=== PATIENT | male | born 1960 | race Caucasian/White ===

== ENCOUNTER → 2024-11-16 | Outpatient (CLI) | payer MEDICARE, SELFPAY ==
[2024-11-16 08:34] LABS: Basophils % (Auto) 0 % (0-2.5); Eosinophils # (Auto) 0.1 Thou/mm3 (0.0-0.5); Eosinophils % (Auto) 1 % (0-10); Hematocrit 44.7 % (41.0-53.0); Hemoglobin 15.5 g/dL (13.5-16.0); Immature Granulocytes % (Auto) 1 % (0-0); Immature Granulocytes Auto 0.03 Thou/mm3 (0.00-0.00); Lymphocytes # (Auto) 1.6 Thou/mm3 (1.0-4.8); Lymphocytes % (Auto) 27 % (10-50); Mean Corpuscular HGB Conc 34.7 g/dl (31.0-37.0); Mean Corpuscular Hemoglobin 31.2 pg (25.0-35.0); Mean Corpuscular Volume 90 fL (80-100); Monocytes # (Auto) 0.6 Thou/mm3 (0.0-0.8); Monocytes % (Auto) 10 % (0-12); Neutrophils # (Auto) 3.4 Thou/mm3 (1.8-7.7); Neutrophils % (Auto) 61 % (37-80); Nucleated Red Blood Cell % 0 /100 WBC (0); Platelet Count 261 Thou/mm3 (140-440); RDW Standard Deviation 39.2 fL (35.1-43.9); Red Blood Count 4.97 Miln/mm3 (4.50-5.90); White Blood Count 5.7 Thou/mm3 (3.8-10.6)
[2024-11-16 08:46] LABS: Glucose Estimated Average 100 mg/dL (80-131); Hemoglobin A1C 5.1 % Hgb (4.8-6.0)
[2024-11-16 09:09] LABS: Alanine Aminotransferase 23 U/L (10-49); Albumin, Serum 4.3 gm/dL (3.4-4.8); Albumin/Globulin Ratio 1.5 (1.2-2.2); Alkaline Phosphatase 74 U/L (46-116); Anion Gap 6 (7-16); Aspartate Amino Transferase 19 U/L (0-34); BUN/Creatinine Ratio 18 Ratio (12-20); Blood Urea Nitrogen 18 mg/dL (9-23); Calcium 9.3 mg/dL (8.3-10.6); Calcium (Corrected) 9.3 mg/dL (8.5-10.1); Carbon Dioxide 28.7 mMol/L (20.0-31.0); Chloride 108 mMol/L (98-107); Free T4 (Free Thyroxine) 0.99 ng/dL (0.89-1.76); Globulin 2.8 gm/dL (2.3-3.5); Glucose 105 mg/dL (74-106); Osmolality,Calculated 286 (275-295); Potassium 4.3 mMol/L (3.4-5.1); Sodium 143 mMol/L (136-145); Thyroid Stimulating Hormone 4.79 uIU/mL (0.55-4.78); Total Protein 7.1 gm/dL (5.7-8.2); eGFR > 60 See Note
[2024-11-16 09:26] LABS: Cardiac Risk Estimate 3.8 RATIO (4.0-6.7); Cholesterol 175 mg/dL (132-200); HDL Cholesterol 46 mg/dL (40-60); LDL Cholesterol,Calculated 102 mg/dL (0-130); Triglycerides 136 mg/dL (30-150)
[2024-11-16 14:56] LABS: Prostate Specific Antigen 2.02 ng/mL (0-4.00)
== END | disposition home or self-care (01) ==
LOC: SLAB 06:38 → COPL 06:44
PROVIDERS: PCP Internal Medicine; Referring Provider Internal Medicine; Visit Provider Internal Medicine
DX: Z00.00 Encounter for general adult medical examination without abnormal findings (principal); N40.1 Benign prostatic hyperplasia with lower urinary tract symptoms; E55.9 Vitamin D deficiency, unspecified; E03.9 Hypothyroidism, unspecified
CPT/HCPCS: 36415; 80053; 80061; 82306; 83036; 84153; 84439; 84443; 85025

== ENCOUNTER 2024-12-08 12:15 | Day surgery (SDC) | payer MEDICARE, SELFPAY ==
[2024-12-07 14:24] VITALS: BMI 28.1
[2024-12-08] VITALS (12 sets, daily range): BP systolic 117–161; BP diastolic 61–89; PULSE 49–65; RESP 12–18; TEMP 36.6; O2SAT 95–100; BMI 27.9
[2024-12-08] MEDS: SODIUM CHLORIDE 0.9% 500 ML 500 ML 20 ML IV (12:51)
[2024-12-08] MEDS: fentaNYL CIT INJ 50 mCg/ML AMP 2ML (ASD USE ONLY) IV (13:58)
[2024-12-08] MEDS: DiphenhydrAMINE INJ 50 MG/ML VIAL 25 MG IV (13:59)
[2024-12-08] MEDS: MIDAZOLAM INJ 1 MG/ML VIAL 2 ML (ASD USE ONLY) 2 MG IV (14:00)
--- NOTE | 2024-12-08 14:45 | SUR.PHASEII ---
PATIENT CONVERSING WITH STAFF AND DRINKING 7UP. PATIENT DENIES PAIN AND NAUSEA AT THIS TIME.
== END 2024-12-08 15:17 | disposition home or self-care (01) ==
PROVIDERS: PCP Internal Medicine; Referring Provider Specialist; Visit Provider Specialist
PROC: 0DBE8ZX Excision of Large Intestine, Via Natural or Artificial Opening Endoscopic, Diagnostic (ICD-10-PCS; CPT 45380; principal; 2024-12-08 12:00)
DX: K64.2 Third degree hemorrhoids (principal)
CPT/HCPCS: 46221; 45378; A4649; J1200; J2250; J3010; J7040

== ENCOUNTER 2025-06-14 17:37 | Emergency (ER) | payer MEDICARE, SELFPAY ==
[2025-06-14] VITALS (7 sets, daily range): BP systolic 146–191; BP diastolic 76–98; PULSE 62–74; RESP 17–19; TEMP 36.8–37.3; O2SAT 94–98; BMI 27.3
--- NOTE | 2025-06-14 18:21 | PD.EDHA ---
ED Headache RME/HPI General Chief Complaint: Headache Stated Complaint: HEADACHE WITH EYE PAIN, HTN, VOMITING TODAY Time Seen by Provider: 06/14/25 18:21 Arrival date/time: 06/14/25 17:37 RME / HPI RME / HPI Narrative: Dr. 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 Patient has had several bouts of vomiting. Reports baseline blurry vision since the surgery. No lateralizing motor or sensory deficits. No fever or chills. PMH includes HTN. PSH noncontributory. No alcohol or illicit drug abuse. Related Data Home Medications ?Medication ?Instructions ?Recorded ?Confirmed amlodipine 2.5 mg tablet 2.5 mg PO QDAY 12/07/24 12/07/24 valsartan 160 1 tab PO QDAY 12/07/24 12/07/24 mg-hydrochlorothiazide 12.5 mg tablet Previous Rx's ?Medication ?Instructions ?Recorded hydrocodone 10 mg-acetaminophen 1 tab PO BID PRN pain #12 tabs 06/14/25 325 mg tablet Allergies Allergy/AdvReac Type Severity Reaction Status Date / Time No Known Allergies Allergy Verified 06/14/25 17:40 Review of Systems Review of Systems Systems Reviewed: All systems reviewed, normal except as documented Past Medical History Past Medical History NEUROLOGIC: Negative Neurological Disorders or Seizures CARDIAC: Positive Cardiac Disorders and Hypertension; Negative Congestive Heart Failure RESPIRATORY: Negative Chronic Obstructive Pulmonary Disease (COPD) GASTROINTESTINAL: Negative Gastrointestinal Disorders GENITOURINARY: Negative Genitourinary Disorders or Renal Disease MUSCULOSKELETAL: Negative Musculoskeletal Disorders ENT: Positive Cataracts (BILATERAL) ENDOCRINE: Negative Endocrine Disorders, Diabetes Mellitus Type 1 or Diabetes Mellitus Type 2 HEMATOLOGIC: Negative Blood Disorders or Clotting Problems OTHER HISTORY: Negative Hospitalization, Autoimmune Disease, Falls, Blood Transfusions, Anesthesia Reactions or Cancer Surgical History SURGICAL: Positive Vasectomy Social History SMOKING STATUS: Never smoker ED Exam Narrative Physical exam: GENERAL APPEARANCE: alert and oriented x 4, well-developed, well-nourished, in moderate distress VITALS: All vitals were reviewed and the pulse ox is 97% on room air, which is normal according to my interpretation. Moderately hypertensive. HEENT: Normocephalic, atraumatic; no allodynia, intense ecchymosis ?lens displacement of the left eye, left pupil is fixed and dilated, right pupil is brisk and reactive; fundoscopic exam is not visualized; mucous membranes pink, moist; oropharynx clear NECK: Supple LUNGS: CTABL; no wheezes, no rales, no rhonchi HEART: Regular rate, regular rhythm; normal S1, S2; no murmurs ABDOMEN: non distended; soft, no tenderness EXTREMITIES: atraumatic; no edema NEUROLOGIC: awake; alert and oriented x4; cranial nerves II-XII grossly intact; no focal sensory or motor deficits PSYCHIATRIC: appropriate mood and affect SKIN: warm, dry, normal color; no rashes Course Quality Measures none Orders Category Date Time Status Insert IV NOW Care 06/14/25 18:[address] head/brain wo con Stat Exams 06/14/25 18:35 Completed CBC [CBC] Stat Lab 06/14/25 18:40 Completed CMP [Comprehensive Metabolic Panel] Stat Lab 06/14/25 18:40 Completed Fluorescein Sodium [Bio-Lisa] Med 06/14/25 18:54 Discontinued 1 mg LEFT EYE X1 ONE Midazolam Inj [Versed Inj] Med 06/14/25 22:43 Discontinued 2 mg IVP X1 ONE Morphine* Inj Med 06/14/25 18:34 Discontinued 4 mg IVP X1 ONE Morphine* Inj Med 06/14/25 21:01 Discontinued 4 mg IVP X1 ONE Ondansetron Inj [Zofran Inj] Med 06/14/25 21:24 Discontinued 4 mg IVP X1 ONE Prochlorperazine Inj [Compazine Inj] Med 06/14/25 18:33 Discontinued 5 mg IV X1 ONE Proparacaine Op Malena 0.5% [Alcaine Op Malena 0.5%] Med 06/14/25 18:35 Discontinued See Dose Instructions LEFT EYE X1 ONE Sodium Chloride 0.9% 1000 ml [Ns] 1,000 ml Med 06/14/25 19:46 Discontinued IV 100 mls/hr Sodium Chloride 0.9% [Ns] 100 ml Med 06/14/25 18:34 Discontinued IV X1 hydrALAZINE INJ [Apresoline Inj] Med 06/14/25 18:35 Discontinued 10 mg IVP X1 ONE hydrALAZINE INJ [Apresoline Inj] Med 06/14/25 20:58 Discontinued 5 mg IVP X1 ONE Vital Signs Vital signs: Vital Signs Temperature 98.2 F 06/14/25 17:53 Pulse Rate 62 06/14/25 17:53 Respiratory Rate 19 06/14/25 17:53 Blood Pressure 191/98 H 06/14/25 17:53 Pulse Oximetry (%) 97 06/14/25 17:53 Oxygen Delivery Method Room Air 06/14/25 17:53 PROCEDURES: Procedure Comment Tonometry exam performed after proparacaine drops were instilled to both conjunctival sacs. Pressures were obtained and were 1-2 bilaterally. Headache MDM Narrative MDM Narrative:: Scribe Attestation: 06/14/25 - Danae, Radha Mendoza am scribing for and in the presence of Dr. Holder. 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 Patient has had several bouts of vomiting. Please see PE findings. Lab markers demonstrated marginally elevated WBC count 10.9, stable Hgb 15.9, normal Plt, left shift without bandemia. Chemistries are unremarbable. CT scan demonstrates hyperdense left globe. Patient placed on monitor worker, IV established, and patient received incremental doses of narcotic analgesics/antihypertensives with gradual reduction of blood pressure and moderate controlled pain. Ocular pressures obtained and seem to be normal bilaterally. Bedside US demonstrates hyperdense posterior chamber, ?vitreous hemorrhage. Will attempt to contact supervisor agricultural education for close follow-up. Patient will be discharged to home with instructions to maintain head of bed elevation, cool comp, and will be given narcotic analgesics with anticipated close follow-up. Brake Engineer was contacted and can see the patient tomorrow morning at 8am in his office. Patient data External records reviewed:: [facility] previous records (Per chart review, patient has no previous ED visits or admissions to this facility.) Clinical information provided by:: patient Social determinants that could affect healthcare access:: none Patient has the following chronic illnesses:: HTN How is presenting disease/condition affected by chronic disease/condition?: uneffected by Evaluation data The following diagnostics were reviewed and interpreted by me:: lab results and radiology exam(s) Lab and/or radiology exams considered but not ordered:: none Interpretation Summary: [facility] Report Signed Patient: THERESE MEAD [facility]. Record#: [id number] Birthdate: 1960 Age/Sex: 64 / M Location: [facility] Attending Dr: Ordering Physician: Gabo Ashford DO Date of Service: 06/14/25 Procedure(s): CT head/brain wo con Accession Number(s): [id number] cc: Elton Dodd MD; Gabo Ashford DO; Cristhian Mott MD~ Examination: CT brain head without contrast. 2-D sagittal coronal reconstructions Date and time of exam: June 14, 2025, 1913 hours INDICATIONS: Onset left sided headache with nausea today, 1 week. Retinal surgery CTDI: vol (mGy): 51.5 DLP: (mGycm): 9016 Technique: Multiple CT axial sections of the brain have been obtained, 5 mm slice thickness. Contrast has not been administered. 2-D sagittal, coronal reconstructions have been obtained Low dose protocols were performed. One or more of the following dose reduction techniques were used; automated exposure control, adjustment of the mA and/or KV according to patient size, use of iterative reconstruction technique. Findings: No significant ventricular enlargement. Hyperdense left optic globe Intra-axial or extra-axial hemorrhage density is not seen. No mass effect or midline shift Basal cisterns are not remarkable. Fourth ventricle is midline. Cranial vault intact. Impression: Negative for acute hemorrhage, mass effect or midline shift If early infarction is a clinical consideration, suggest brain MRI follow-up Dictated By: Cristhian Mott MD Signed By: <Electronically signed by Cristhian Mott MD in OV> 06/14/25 192 Medications / Prescriptions Medications or Prescriptions considered but not ordered:: none Medication administrations:: Medication Administration History Discontinued Medications Fluorescein Sodium (Fluorescein Sod 1 Mg Strp) 1 mg LEFT EYE X1 ONE Stop: 06/14/25 18:55 Last Admin: 06/14/25 21:10 Dose: 1 mg Documented By: CELSO Hydralazine HCl (Hydralazine Inj 20 Mg/Ml Vial) 10 mg IVP X1 ONE Stop: 06/14/25 18:36 Last Admin: 06/14/25 18:48 Dose: 10 mg Documented By: NIKI Hydralazine HCl (Hydralazine Inj 20 Mg/Ml Vial) 5 mg IVP X1 ONE Stop: 06/14/25 20:59 Last Admin: 06/14/25 21:13 Dose: 5 mg Documented By: CELSO Sodium Chloride (Ns) 100 mls @ 100 mls/hr IV X1 ONE Stop: 06/14/25 19:33 Last Admin: 06/14/25 20:11 Dose: Not Given Documented By: JEAN Non-Admin Reason: Discontinued Sodium Chloride (Ns) 1,000 mls @ 100 mls/hr IV .Q10H JAIMEE Stop: 07/14/25 19:45 Last Admin: 06/14/25 20:11 Dose: 100 mls/hr Documented By: CELSO Midazolam HCl (Midazolam Inj 1 Mg/Ml Vial 2 Ml) 2 mg IVP X1 ONE Stop: 06/14/25 22:44 Last Admin: 06/14/25 22:57 Dose: 2 mg Documented By: CELSO Morphine Sulfate (Morphine Sulf Inj 4 Mg/Ml Vial) 4 mg IVP X1 ONE Stop: 06/14/25 18:35 Last Admin: 06/14/25 18:48 Dose: 4 mg Documented By: NIKI Morphine Sulfate (Morphine Sulf Inj 4 Mg/Ml Vial) 4 mg IVP X1 ONE Stop: 06/14/25 21:02 Last Admin: 06/14/25 21:13 Dose: 4 mg Documented By: CELSO Ondansetron HCl (Ondansetron Inj 2 Mg/Ml Inj 2 Ml) 4 mg IVP X1 ONE; Protocol Stop: 06/14/25 21:25 Last Admin: 06/14/25 21:28 Dose: 4 mg Documented By: CELSO Prochlorperazine Edisylate (Prochlorperazine Inj 5 Mg/Ml Vial 2 Ml) 5 mg IV X1 ONE; Protocol Stop: 06/14/25 18:34 Last Admin: 06/14/25 18:50 Dose: 5 mg Documented By: NIKI Proparacaine HCl (Proparacaine Op Malena 0.5% 15 Ml Btl) 0 drop LEFT EYE X1 ONE Stop: 06/14/25 18:36 Last Admin: 06/14/25 18:53 Dose: 225 drop Documented By: NIKI Comments: MED ADMIT BY DR ashford see above Consultations Consultation(s) initiated? (list below): No Diagnosis Differential diagnosis headache: other (displaced optic lens, vitreous hemorrhage, glaucoma) Most likely diagnosis given after review of the tests above:: see clinical impression Admission Indicated Admission indicated?: not indicated Admission Request Was there a request for admission?: No Disposition Plan Disposition Plan: Discharge Discharge Attestation Discharge Attestation: The patient and all family members were given an opportunity to ask questions and understood the discharge instructions. Discharge instructions specifically effects, indications for sooner follow up or return to the emergency department, and the expected course of current diagnosis. Patient condition: Stable Discharge Plan Plan Patient Disposition: HOME (Self Care) Patient condition on transfer: Stable Prescriptions/Referrals Prescriptions/Med Rec: New hydrocodone-acetaminophen 10-325 mg tablet 1 tab PO BID MDD 2 PRN (Reason: pain) Qty: 12 0RF No Action valsartan-hydrochlorothiazide 160-12.5 mg tablet 1 tab PO QDAY Patient Comments: TAKE 1 TABLET BY MOUTH EVERY DAY amlodipine 2.5 mg tablet 2.5 mg PO QDAY Referrals: Elton Dodd MD [Primary Care Provider, Internal Medicine] - In 1 week Problem List Clinical Impression: Vitreous hemorrhage, Headache Patient/Caregiver Discharge Instructions Discharge Activity: activity as tolerated Education Materials: Self-Care for Headaches Additional Instructions: Cool compresses head of bed elevation, may increase amlodipine to 1 tablet twice daily if systolic blood pressures greater than 150/diastolic greater than 95. Follow-up with supervisor agricultural education at 8 AM.. Print Language: Serbian Stand Alone Forms: Ashli Award Info., Patient Portal Info Letter
--- NOTE | 2025-06-14 18:35 | XR_ITS ---
Examination: CT brain head without contrast. 2-D sagittal coronal reconstructions Date and time of exam: June 14, 2025, 1913 hours INDICATIONS: Onset left sided headache with nausea today, 1 week. Retinal surgery CTDI: vol (mGy): 51.5 DLP: (mGycm): 9016 Technique: Multiple CT axial sections of the brain have been obtained, 5 mm slice thickness. Contrast has not been administered. 2-D sagittal, coronal reconstructions have been obtained Low dose protocols were performed. One or more of the following dose reduction techniques were used; automated exposure control, adjustment of the mA and/or KV according to patient size, use of iterative reconstruction technique. Findings: No significant ventricular enlargement. Hyperdense left optic globe Intra-axial or extra-axial hemorrhage density is not seen. No mass effect or midline shift Basal cisterns are not remarkable. Fourth ventricle is midline. Cranial vault intact. Impression: Negative for acute hemorrhage, mass effect or midline shift If early infarction is a clinical consideration, suggest brain MRI follow-up
[2025-06-14 18:47] LABS: Basophils # (Auto) 0.0 Thou/mm3 (0.0-0.2); Basophils % (Auto) 0 % (0-2.5); Eosinophils # (Auto) 0.0 Thou/mm3 (0.0-0.5); Eosinophils % (Auto) 0 % (0-10); Hematocrit 44.1 % (41.0-53.0); Hemoglobin 15.9 g/dL (13.5-16.0); Immature Granulocytes Auto 0.05 Thou/mm3 (0.00-0.00); Lymphocytes # (Auto) 0.7 Thou/mm3 (1.0-4.8); Lymphocytes % (Auto) 7 % (10-50); Mean Corpuscular HGB Conc 36.1 g/dl (31.0-37.0); Mean Corpuscular Hemoglobin 31.0 pg (25.0-35.0); Mean Corpuscular Volume 86 fL (80-100); Monocytes # (Auto) 0.2 Thou/mm3 (0.0-0.8); Monocytes % (Auto) 2 % (0-12); Neutrophils # (Auto) 10.0 Thou/mm3 (1.8-7.7); Neutrophils % (Auto) 91 % (37-80); Nucleated Red Blood Cell # 0.00 Thou/mm3 (0.00-0.00); Nucleated Red Blood Cell % 0 /100 WBC (0); Platelet Count 258 Thou/mm3 (140-440); RDW Standard Deviation 37.4 fL (35.1-43.9); Red Blood Count 5.13 Miln/mm3 (4.50-5.90); White Blood Count 10.9 Thou/mm3 (3.8-10.6)
[2025-06-14] MEDS: hydrALAZINE INJ 20 MG/ML VIAL 10 MG IVP (18:48)
[2025-06-14] MEDS: MORPHINE SULF INJ 4 MG/ML VIAL IVP ×2 (18:48→21:13)
[2025-06-14] MEDS: PROCHLORPERAZINE INJ 5 MG/ML VIAL 2 ML IV (18:50)
[2025-06-14] MEDS: PROPARACAINE OP SOL 0.5% 15 ML BTL LEFT EYE (18:53)
[2025-06-14 19:06] LABS: Alanine Aminotransferase 26 U/L (10-49); Albumin, Serum 4.9 gm/dL (3.4-4.8); Albumin/Globulin Ratio 1.8 (1.2-2.2); Alkaline Phosphatase 69 U/L (46-116); Anion Gap 12 (7-16); Aspartate Amino Transferase 25 U/L (0-34); BUN/Creatinine Ratio 14 Ratio (12-20); Bilirubin,Total 0.7 mg/dL (0.3-1.2); Blood Urea Nitrogen 14 mg/dL (9-23); Calcium 9.6 mg/dL (8.3-10.6); Calcium (Corrected) 9.6 mg/dL (8.5-10.1); Carbon Dioxide 27.5 mMol/L (20.0-31.0); Chloride 102 mMol/L (98-107); Creatinine (Component) 1.0 mg/dL (0.6-1.3); Estimated Creatinine Clearance 70.3 mL/min (>60); Globulin 2.8 gm/dL (2.3-3.5); Glucose 150 mg/dL (74-106); Osmolality,Calculated 284 (275-295); Potassium 4.0 mMol/L (3.4-5.1); Sodium 141 mMol/L (136-145); Total Protein 7.7 gm/dL (5.7-8.2); eGFR > 60 See Note
[2025-06-14] MEDS: SODIUM CHLORIDE 0.9% 1000 ML 1,000 ML 100 ML IV (20:11)
[2025-06-14] MEDS: FLUORESCEIN SOD 1 MG STRP LEFT EYE (21:10)
[2025-06-14] MEDS: hydrALAZINE INJ 20 MG/ML VIAL 5 MG IVP (21:13)
--- NOTE | 2025-06-14 21:16 | EDNOTE_ITS ---
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
--- NOTE | 2025-06-14 21:16 | PD.EDADDENDU ---
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
[2025-06-14] MEDS: ONDANSETRON INJ 2 MG/ML INJ 2 ML 4 MG IVP (21:28)
[2025-06-14] MEDS: MIDAZOLAM INJ 1 MG/ML VIAL 2 ML 2 MG IVP (22:57)
[2025-06-15 00:22] VITALS: BP 151/86; PULSE 74; RESP 12; TEMP 36.6
== END 2025-06-15 00:25 | disposition home or self-care (01) ==
PROVIDERS: Emergency Provider Emergency Medicine; PCP Internal Medicine
DX: H43.12 Vitreous hemorrhage, left eye (principal); R51.9 Headache, unspecified
CPT/HCPCS: 36415; 70450; 80053; 81001; 85025; 96374; 96375; 96376; 99284; J0360; J0780; J2250; J2270; J2405; J7030